=== PATIENT | male | born 1990 | race Caucasian/White ===

== ENCOUNTER 2023-09-20 11:13 | Emergency (ER) | payer BC, OTHER ==
[2023-09-20] MEDS: Sodium Chloride 0.9% 1,000 ML IV STA (11:38)
[2023-09-20] MEDS: Sodium Chloride 0.9% 2.5 ML Syringe FLUSH PRN (11:39)
[2023-09-20] MEDS: Morphine 4 MG/ML Syringe IVPUSH ONE (11:39)
[2023-09-20] MEDS: Sodium Chloride 0.9% 10 ML Syringe FLUSH PRN (11:39)
[2023-09-20] MEDS: Ondansetron 4 MG/2 ML SDV IVPUSH ONE (11:39)
[2023-09-20] MEDS: Aspirin 81 MG Tab.Chew PO ONE ×2 (11:40→11:42)
[2023-09-20 11:47] LABS: BASOPHILS ABSOLUTE AUTO 0.03 K/uL (0.00-0.20); BASOPHILS PERCENT AUTO 0.3 % (0.0-1.0); EOSINOPHILS ABSOLUTE AUTO 0.14 K/uL (0.00-0.45); EOSINOPHILS PERCENT AUTO 1.2 % (0.0-6.0); HEMOGLOBIN 18.3 g/dL (14.0-18.0); IMMATURE GRAN ABSOLUTE AUTO 0.02 K/uL (0.00-0.05); IMMATURE GRAN PERCENT AUTO 0.2 % (0.0-0.4); LYMPHOCYTES ABSOLUTE AUTO 4.86 K/uL (1.00-4.80); MEAN CORPUSCULAR HEMOGLOBIN 31.7 pg (28.0-32.0); MEAN CORPUSCULAR HGB CONC 36.6 g/dL (32.0-36.0); MEAN CORPUSCULAR VOLUME 86.5 fL (83.0-99.0); MONOCYTES ABSOLUTE AUTO 1.01 K/uL (0.00-0.80); MONOCYTES PERCENT AUTO 8.5 % (0.0-8.0); NEUTROPHILS ABSOLUTE AUTO 5.78 K/uL (1.80-7.70); NEUTROPHILS PERCENT AUTO 48.8 % (41.0-71.0); PLATELET COUNT,PLT 227 K/uL (150-400); RED BLOOD CELL COUNT 5.78 M/uL (4.52-5.90); WHITE BLOOD CELL COUNT,WBC 11.84 K/uL (3.9-11.3)
[2023-09-20 12:23] LABS: A/G RATIO 1.2 (0.9-1.6); ALBUMIN 4.1 g/dL (3.4-5.0); BILIRUBIN TOTAL 1.9 mg/dL (0.2-1.0); CALCIUM 9.4 mg/dL (8.5-10.1); CARBON DIOXIDE,CO2 27.1 mmol/L (21.0-32.0); CREATININE 1.5 mg/dL (0.8-1.3); EST CRCL DRUG DOSING (CG) 79.9 mL/min; POTASSIUM,K 3.8 mmol/L (3.5-5.1); PROTEIN TOTAL,TP 7.5 g/dL (6.4-8.2)
[2023-09-20] MEDS: Alum Hydro/Mag Hydro/Simeth XS 15 ML, Metoclopramide 5 MG, Lidocaine 2% 5 ML PO ONE (12:25)
[2023-09-20] MEDS: Ketorolac 30 MG/ML SDV IVPUSH ONE (12:25)
[2023-09-20 12:47] LABS: APPEARANCE,URINE CLEAR; BILIRUBIN,URINE NEGATIVE (NEGATIVE); COLOR,URINE YELLOW; GLUCOSE,URINE NEGATIVE (NEGATIVE); KETONES,URINE 15 mg/dL (NEGATIVE); LEUKOCYTE ESTERASE,URINE NEGATIVE (NEGATIVE); NITRITE,URINE NEGATIVE (NEGATIVE); OCCULT BLOOD,URINE NEGATIVE (NEGATIVE); PH,URINE 7.5 (5.0-8.0); PROTEIN,URINE TRACE mg/dL (NEGATIVE)
[2023-09-20] MEDS: Iopamidol 755 MG/ML 500 ML Multipack Bottle IVPUSH STA (12:51)
[2023-09-20 13:30] LABS: BACTERIA,URINE FEW (NEGATIVE); EPITHELIAL CELLS,URINE RARE (NONE-FEW); RBC,URINE 0-2 (0-2/HPF); WBC,URINE 0-2 (0-5/HPF)
== END 2023-09-20 14:07 | disposition home or self-care (01) ==
LOC: MW.ED 11:13
DX: K80.20 Calculus of gallbladder without cholecystitis without obstruction (principal); R07.89 Other chest pain; Z75.8 Other problems related to medical facilities and other health care; Z88.5 Allergy status to narcotic agent
CPT/HCPCS: 36415; 71045; 71275; 74174; 80053; 81001; 83690; 84484; 85025; 93005; 96361; 96374; 96375; 99285; A9270; J1885; J2270; J2405; J3490; J7030; Q9967

== ENCOUNTER 2024-06-21 12:27 | Emergency (ER) | payer BC ==
[2024-06-21] MEDS ORDERED: Sodium Chloride 0.9% 10 ML Syringe FLUSH PRN (13:02)
[2024-06-21] MEDS: Ketorolac 30 MG/ML SDV IVPUSH ONE (13:22)
[2024-06-21] MEDS: Sodium Chloride 0.9% 1,000 ML IV ONE (13:22)
[2024-06-21] MEDS: Ondansetron 4 MG/2 ML SDV IVPUSH ONE (13:23)
[2024-06-21] MEDS: Alum Hydrox/Mag Hydrox/Simeth 15 ML, Lidocaine 2% 5 ML PO ONE (13:33)
[2024-06-21 13:47] LABS: BASOPHILS ABSOLUTE AUTO 0.02 K/uL (0.00-0.20); BASOPHILS PERCENT AUTO 0.2 % (0.0-1.0); EOSINOPHILS ABSOLUTE AUTO 0.11 K/uL (0.00-0.45); EOSINOPHILS PERCENT AUTO 1.3 % (0.0-6.0); HEMATOCRIT 50.3 % (42.0-52.0); HEMOGLOBIN 18.2 g/dL (14.0-18.0); IMMATURE GRAN ABSOLUTE AUTO 0.02 K/uL (0.00-0.05); IMMATURE GRAN PERCENT AUTO 0.2 % (0.0-0.4); LYMPHOCYTES ABSOLUTE AUTO 3.01 K/uL (1.00-4.80); LYMPHOCYTES PERCENT AUTO 34.6 % (24.0-44.0); MEAN CORPUSCULAR HEMOGLOBIN 31.8 pg (28.0-32.0); MEAN CORPUSCULAR HGB CONC 36.2 g/dL (32.0-36.0); MEAN CORPUSCULAR VOLUME 87.9 fL (83.0-99.0); MEAN PLATELET VOLUME 10.6 fL (9.4-12.4); MONOCYTES ABSOLUTE AUTO 0.84 K/uL (0.00-0.80); MONOCYTES PERCENT AUTO 9.6 % (0.0-8.0); NEUTROPHILS ABSOLUTE AUTO 4.71 K/uL (1.80-7.70); NEUTROPHILS PERCENT AUTO 54.1 % (41.0-71.0); PLATELET COUNT,PLT 206 K/uL (150-400); RED BLOOD CELL COUNT 5.72 M/uL (4.52-5.90); WHITE BLOOD CELL COUNT,WBC 8.71 K/uL (3.9-11.3)
[2024-06-21] MEDS ORDERED: Naloxone 0.4 MG/ML SDV IVPUSH PRN (13:53)
[2024-06-21 14:09] LABS: A/G RATIO 1.3 (0.9-1.6); CALCIUM 9.1 mg/dL (8.5-10.1); CARBON DIOXIDE,CO2 25.6 mmol/L (21.0-32.0); CREATININE 1.3 mg/dL (0.8-1.3); EST CRCL DRUG DOSING (CG) 91.34 mL/min
[2024-06-21] MEDS: HYDROmorphone 1 MG/ML Syringe IVPUSH ONE (14:13)
[2024-06-21] MEDS: Pantoprazole 40 MG in Sodium Chloride 0.9% 10 ML IVPUSH ONE (15:02)
[2024-06-21] MEDS: Iopamidol 755 MG/ML 500 ML Multipack Bottle IVPUSH STA (15:37)
[2024-06-21] MEDS: Aluminum Hydroxide/Magnesium Hydroxide/Simethicone Susp 30 ML Cup PO ONE (16:01)
== END 2024-06-21 18:45 | disposition home or self-care (01) ==
LOC: MW.ED 12:27
DX: K80.70 Calculus of gallbladder and bile duct without cholecystitis without obstruction (principal); J45.909 Unspecified asthma, uncomplicated; Z88.2 Allergy status to sulfonamides
CPT/HCPCS: 36415; 71045; 74177; 76705; 80053; 83690; 83735; 85025; 96361; 96374; 96375; 99284; A9270; J1171; J1885; J2405; J2470; J7030; Q9967